=== PATIENT | female | born 1955 | race Caucasian/White ===

== ENCOUNTER 2022-03-03 11:44 | Day surgery (SDC) | payer BC ==
[2022-03-02 14:41] LABS: BASOPHILS % (AUTO) 0.4 % (0-1); EOSINOPHILS # (AUTO) 0.1 X10'3 (0-0.9); EOSINOPHILS % (AUTO) 1.8 % (0-6); LYMPHOCYTES # (AUTO) 1.3 X10'3 (1.1-4.8); LYMPHOCYTES % (AUTO) 19.9 % (21-51); MEAN CORPUSCULAR HEMOGLOBIN 32.8 PG (27.0-31.0); MEAN CORPUSCULAR HGB CONC 34.3 g/dL (33.0-36.5); MEAN CORPUSCULAR VOLUME 95.8 FL (78-98); MONOCYTES # (AUTO) 0.4 X10'3 (0-0.9); MONOCYTES % (AUTO) 6.9 % (2-12); NEUTROPHILS # (AUTO) 4.5 X10'3 (1.8-7.7); PRE OP HEMATOCRIT 36.7 % (35.0-45.0); PRE OP HEMOGLOBIN 12.6 g/dL (12.0-16.0); PRE OP PLATELET COUNT 318 X10'3 (140-440); RED BLOOD COUNT 3.83 X10'6 (4.20-5.60); RED CELL DISTRIBUTION WIDTH 13.1 % (11.5-14.5)
[2022-03-02 15:11] LABS: ALBUMIN 3.7 G/DL (3.4-5.0); ALBUMIN/GLOBULIN RATIO 0.9 (1.1-1.5); ALKALINE PHOSPHATASE 126 IU/L (46-116); BLOOD UREA NITROGEN 22 MG/DL (7-18); CALCIUM 10.1 MG/DL (8.5-10.1); CHLORIDE 102 MMOL/L (99-107); CREATININE 0.88 MG/DL (0.40-0.90); PRE OP ALT 25 U/L (30-65); PRE OP ANION GAP 10 (8-16); PRE OP AST 22 U/L (10-37); PRE OP BILIRUB, TOTAL 1.1 MG/DL (0.0-1.0); PRE OP GLUCOSE 101 MG/DL (70-104); PRE OP SODIUM 137 MMOL/L (135-145); TOTAL CARBON DIOXIDE 24.7 MMOL/L (24-32); TOTAL PROTEIN 7.8 G/DL (6.4-8.2); eGFR 65 ML/MIN
[2022-03-03] VITALS (28 sets, daily range): BP systolic 131–176; BP diastolic 72–114
[~2022-03-03] VITALS: Ht 157.5 cm; Wt 75.6 kg
[~2022-03-03 11:44] MED LIST: ASCO100T12 PO; ERGO400C PO; FERR236T3 PO; LYSI500T11 PO; VITA400T10 PO; VITAMIN B PO; ZINC PO; acetaminophen 325mg tablet PO ONE; ceFAZolin inj. 2,000 MG in dextrose 5%-water 100 ML IV ONE; celeCOXIB 100mg capsule PO ONE; famotidine 20mg tablet PO ONE; gabapentin 300mg capsule PO ONE; metoclopramide 5 mg/ml inj IV ONE; oxyCODONE SR 10mg (sust. release) tab -2 tabs (20mg) PO ONE; ringers solution, lacted 1,000 ML IV SCH; tranexamic acid inj. 1,000 MG in normal saline IV soln 100ML IV ONE; vancomycin 1,500 MG in NS 300ml IV soln IV ONE
[2022-03-03] MEDS ORDERED: HYDR-3964 PO (12:36)
--- NOTE | 2022-03-03 13:10 | NUR ---
STARTED VANCO PER ORDER ON THIS PATIENT. WITHIN 3 MINUTES SHE STATED SHE FELT LIGHT HEADED AND HER CHEST WAS POUNDING. I ORDERED A STAT EKG AND STOPPED THE VANCO. SHE HAD ALSO EXPRESSED SEVERE ANXIETY DURING THIS PROCESS. WILL RESTART THE VANCO AT A SLOWER RATE AFTER EKG IF IT IS NORMAL.
[2022-03-03] MEDS ORDERED: morphine 2 MG/ML inj. syringe IV PRN ×2 (13:15→14:30)
[2022-03-03] MEDS ORDERED: meperidine/PF 25mg/ml syringe IV PRN ×3 (13:15)
[2022-03-03] MEDS ORDERED: ondansetron/PF 4mg/2ml inj IV PRN ×2 (13:15→14:30)
[2022-03-03] MEDS ORDERED: proCHLORperazine 10 MG/2 ml inj IV PRN (13:15)
[2022-03-03] MEDS ORDERED: morphine 4 MG/ML inj SYRINge IV PRN ×2 (13:15→14:30)
[2022-03-03] MEDS ORDERED: ringers solution, lacted 1,000 ML IV SCH ×2 (13:15→14:30)
[2022-03-03] MEDS ORDERED: fentaNYL/PF 50MCG/1 ML 2ML syringe IV PRN (14:30)
[2022-03-03] MEDS ORDERED: vancomycin 1,000mg inj ONE (14:31)
[2022-03-03] MEDS ORDERED: FENTANYL CITRATE/PF 50 MCG/1 ML VIAL ONE ×2 (14:39→16:17)
[2022-03-03] MEDS ORDERED: midazolam 1 mg/ML 2ml injection ONE (14:40)
[2022-03-03] MEDS ORDERED: propofol inj 20 ML IV ONE (14:42)
[2022-03-03] MEDS ORDERED: ROPIVAcaine 0.5% (5mg/ml) 30ml vial ONE (14:42)
[2022-03-03] MEDS ORDERED: dexamethasone sod phosphate 4mg/ml inj. ONE (14:42)
[2022-03-03] MEDS ORDERED: LIDOcaine 2% (20mg/ml) 5ml vial ONE (14:42)
[2022-03-03] MEDS ORDERED: ondansetron/PF 4mg/2ml inj ONE (14:42)
[2022-03-03] MEDS ORDERED: sevoflurane 250ml liquid IH ONE (15:01)
--- NOTE | 2022-03-03 16:43 | NUR ---
Received from OR via BED, accompanied by Anesthesiologist and report given by ZAIRE Anesthesiologist. PATIENT WAKING UP, DENIES PAIN, V/S WNL, SCD ON, 20G TO RIGHT HAND, drsg to LEFT KNEE C/D/I with KNEE IMMOBILIZER. Addendum: 03/03/22 at 1722 by Alberto Anne RN Amended: Links added.
[2022-03-03] MEDS: labetalol 20mg/4ml (5mg/ml) syringe IV PRN ×3 (17:12→17:37)
[2022-03-03] MEDS: fentaNYL/PF 50MCG/1 ML 2ML syringe IV PRN ×2 (17:15→17:28)
[2022-03-03] MEDS: hydrALAZINE 20mg/ml inj. IV PRN ×2 (18:32→18:47)
--- NOTE | 2022-03-03 19:33 | NUR ---
ALL DISCHARGE CRITERIA HAS BEEN MET. VSS, PAIN AT A TOLERABLE LEVEL, ABLE TO SAFELY AMBULATE AND TRANSFER SELF. IV TAKEN OUT WITHOUT ANY COMPLICATIONS. ALL DISCHARGE INSTRUCTIONS COVERED WITH PATIENT AND ALL QUESTIONS ANSWERED. PATIENT TAKEN OUT VIA WHEELCHAIR WITH ALL BELONGINGS TO PERSONAL VEHICLE WHERE FAMILY DROVE PATIENT HOME. Addendum: 03/03/22 at 1950 by Alberto Anne RN Amended: Links added.
== END 2022-03-03 19:33 | disposition home or self-care (01) ==
LOC: PAS 11:44 → EDSTATUS 15:00 → PAS 19:33
PROVIDERS: ATTEND Orthopaedic Surgery
DX: S82.122A Displaced fracture of lateral condyle of left tibia, initial encounter for closed fracture (principal); X58.XXXA Exposure to other specified factors, initial encounter; Y93.89 Activity, other specified; Y92.89 Other specified places as the place of occurrence of the external cause; Y99.8 Other external cause status; Z79.899 Other long term (current) drug therapy; Z87.891 Personal history of nicotine dependence; G89.18 Other acute postprocedural pain
CPT/HCPCS: 27535; 36415; 64447; 73590; 76942; 80053; 82948; 85025; 86885; 86900; 86901; 93005; J0360; J0690; J1100; J2175; J2250; J2270; J2405; J2704; J2765; J2795; J3010; J3370; J3490; J7040; J7060; J7120; Z7512; 76000; A4618; A6222; A6449; A7000; C1713